=== PATIENT | female | born 1965 | race Caucasian/White ===

== ENCOUNTER 2018-01-02 09:37 | Outpatient (CLI) | payer SELFPAY | END 2018-01-02 09:38 | disposition home or self-care (01) | LOC: DI 09:37 | PROVIDERS: ATTEND Internal Medicine | DX: Z53.9 Procedure and treatment not carried out, unspecified reason (principal) ==

== ENCOUNTER 2018-01-05 13:26 | Outpatient (CLI) | payer SELFPAY | END 2018-01-05 13:27 | disposition home or self-care (01) | LOC: DI 13:26 | PROVIDERS: ATTEND Internal Medicine | DX: Z53.9 Procedure and treatment not carried out, unspecified reason (principal) ==

== ENCOUNTER 2018-04-10 05:59 | Outpatient (CLI) | payer SELFPAY | END 2018-04-10 06:00 | disposition home or self-care (01) | LOC: DI 05:59 | PROVIDERS: ATTEND Internal Medicine | DX: Z53.9 Procedure and treatment not carried out, unspecified reason (principal) ==

== ENCOUNTER 2023-03-26 14:58 | Outpatient (CLI) | payer SELFPAY | END 2023-03-26 14:59 | disposition home or self-care (01) | LOC: LAB.R 14:58 | DX: Z53.9 Procedure and treatment not carried out, unspecified reason (principal) | CPT/HCPCS: 85025 ==